=== PATIENT | female | born 1985 | race Hispanic/Latino ===

== ENCOUNTER 2019-06-06 20:29 | Emergency (ER) | payer OTHER | END 2019-06-06 21:07 | disposition home or self-care (01) | LOC: EDH 20:29 | DX: G43.909 Migraine, unspecified, not intractable, without status migrainosus (principal); E78.00 Pure hypercholesterolemia, unspecified; E11.9 Type 2 diabetes mellitus without complications; Z88.7 Allergy status to serum and vaccine | CPT/HCPCS: 99281 ==

== ENCOUNTER 2020-03-10 17:32 | Emergency (ER) | payer OTHER ==
[2020-03-10] MEDS ORDERED: KETOROLAC 30MG VIAL (30MG/ML) ONE (18:35)
[2020-03-10] MEDS ORDERED: ACETAMINOPHEN 325 MG TAB ONE (18:35)
[2020-03-10] MEDS ORDERED: PENICILLIN G BENZATHINE LA 1.2 MILUNITS/2 ML SYG ONE (18:36)
== END 2020-03-10 18:43 | disposition home or self-care (01) ==
LOC: EDH 17:32
DX: S02.5XXA Fracture of tooth (traumatic), initial encounter for closed fracture (principal); K02.9 Dental caries, unspecified; K04.7 Periapical abscess without sinus; G43.909 Migraine, unspecified, not intractable, without status migrainosus; E78.00 Pure hypercholesterolemia, unspecified; Z98.890 Other specified postprocedural states; Z88.7 Allergy status to serum and vaccine; X58.XXXA Exposure to other specified factors, initial encounter; Y93.89 Activity, other specified; Y92.89 Other specified places as the place of occurrence of the external cause; Y99.8 Other external cause status
CPT/HCPCS: 96372 ×2; 99284; J0561; J1885

== ENCOUNTER 2020-06-30 15:23 | Emergency (ER) | payer OTHER, MEDICARE ==
[2020-06-30] MEDS ORDERED: KETOROLAC TROMETHAMINE 30MG/ML ONE ×2 (15:49→16:08)
[2020-06-30] MEDS ORDERED: HYDROCODONE/ACETAMINOPHEN 10/325 MG TAB ONE (15:50)
[2020-06-30] MEDS ORDERED: DIAZEPAM 5 MG/ML 2 ML SYG ONE (15:51)
[2020-06-30] MEDS ORDERED: DIAZEPAM 5 MG TABLET ONE (16:08)
== END 2020-06-30 18:48 | disposition home or self-care (01) ==
LOC: EDH 15:23
DX: M54.41 Lumbago with sciatica, right side (principal); E78.00 Pure hypercholesterolemia, unspecified; G43.909 Migraine, unspecified, not intractable, without status migrainosus; Z87.891 Personal history of nicotine dependence; Z88.7 Allergy status to serum and vaccine
CPT/HCPCS: 72100; 96372; 99283; J1885 ×2; J3360

== ENCOUNTER 2022-09-18 13:16 | Emergency (ER) | payer OTHER, MEDICARE ==
[~2022-09-18] VITALS: Ht 154.9 cm; Wt 73.5 kg
[2022-09-18 13:55] LABS: BASOPHILS % (AUTO) 0.6 % (0.0-5.0); EOSINOPHILS % (AUTO) 0.8 % (0.0-8.0); HEMATOCRIT 35.8 % (36-48); LYMPHOCYTES % (AUTO) 38.6 % (21.0-51.0); MEAN CORPUSCULAR HEMOGLOBIN 27.7 pg (27.0-33.0); MEAN CORPUSCULAR HGB CONC 32.7 g/dL (32.0-36.0); MEAN CORPUSCULAR VOLUME 84.6 fL (79-99); MONOCYTES % (AUTO) 4.7 % (3.0-13.0); NEUTROPHILS % (AUTO) 55.1 % (40.0-77.0); PLATELET COUNT (AUTO) 323 K/uL (130-400); RED BLOOD CELL COUNT(AUTO) 4.23 MIL/uL (4.00-5.50); RED CELL DISTRIBUTION WIDTH 13.1 % (11.0-15.5); WHITE BLOOD COUNT (AUTO) 4.7 K/uL (4.8-10.8)
[2022-09-18 14:08] LABS: CREATININE 0.9 mg/dL (0.5-1.5); POTASSIUM 3.9 mmol/L (3.5-5.1)
[2022-09-18 14:11] LABS: ALBUMIN 3.4 g/dL (3.5-5.0); MAGNESIUM 1.9 mg/dL (1.80-2.40); TOTAL PROTEIN, SERUM 6.4 g/dL (6.0-8.3)
[2022-09-18] MEDS ORDERED: ASPIRIN 325MG TAB PO ONE (16:30)
[2022-09-18] MEDS ORDERED: MORPHINE 2 MG SYG IVP ONE (16:30)
[2022-09-18] MEDS ORDERED: FAMOTIDINE 20MG VIAL IV ONE (16:30)
[2022-09-18 18:42] VITALS: BP 131/64
== END 2022-09-18 18:50 | disposition home or self-care (01) ==
LOC: EDH 13:16
DX: R07.89 Other chest pain (principal); E78.00 Pure hypercholesterolemia, unspecified; M19.90 Unspecified osteoarthritis, unspecified site; M79.7 Fibromyalgia
CPT/HCPCS: 99285; 96374; 71045; 96375; 83735; 84484; 80053; 85025; 85378; 36415; 93005; J3490; J2270

== ENCOUNTER 2023-10-03 04:38 | Emergency (ER) | payer OTHER, MEDICARE ==
[~2023-10-03] VITALS: Ht 160 cm; Wt 65.8 kg
[~2023-10-03 04:38] MED LIST: ELEC62.5 PO; ONDA-243 PO
[2023-10-03 05:37] LABS: APPEARANCE,URINE CLOUDY (CLEAR); BILIRUBIN,URINE NEGATIVE (NEGATIVE); COLOR,URINE LIGHT-YELLOW (YELLOW); GLUCOSE, URINE (UA) NEGATIVE (NEGATIVE); KETONES,URINE 5 mg/dL (NEGATIVE); LEUKOCYTE ESTERASE ,URINE NEGATIVE Leu/uL (NEGATIVE); NITRATE,URINE NEGATIVE (NEGATIVE); PROTEIN,URINE NEGATIVE (NEGATIVE); UROBILINOGEN,URINE 0.2 mg/dL (0.2-1.0)
[2023-10-03 05:38] LABS: ADD UA MICROSCOPIC YES
[2023-10-03 05:42] LABS: MUCUS,URINE RARE LPF (None Seen); RBC,URINE 0-1 /HPF (0-1); SQUAMOUS EPITHELIAL CELL,UR MOD /HPF (0-2)
[2023-10-03 05:44] LABS: BASOPHILS # (AUTO) 0.03 K/uL (0.00-0.20); BASOPHILS % (AUTO) 0.4 % (0.0-5.0); EOSINOPHILS # (AUTO) 0.03 K/uL (0.00-0.70); EOSINOPHILS % (AUTO) 0.4 % (0.0-8.0); HEMATOCRIT 34.1 % (36-48); IMMATURE GRANULOCYTE ABSOLUTE 0.02 K/uL (0-1); LYMPHOCYTES # (AUTO) 3.4 K/uL (1.0-4.8); LYMPHOCYTES % (AUTO) 44.9 % (21.0-51.0); MEAN CORPUSCULAR HEMOGLOBIN 27.2 pg (27.0-33.0); MONOCYTES # (AUTO) 0.5 K/uL (0.1-1.0); MONOCYTES % (AUTO) 6.8 % (3.0-13.0); NEUTROPHILS # (AUTO) 3.6 K/uL (1.8-7.7); NEUTROPHILS % (AUTO) 47.2 % (40.0-77.0); PLATELET COUNT (AUTO) 459 K/uL (130-400); RED BLOOD CELL COUNT(AUTO) 4.26 MIL/uL (4.00-5.50); RED CELL DISTRIBUTION WIDTH 13.9 % (11.0-15.5); WHITE BLOOD COUNT (AUTO) 7.5 K/uL (4.8-10.8)
[2023-10-03 05:45] LABS: AMPHET/METH SCREEN,URINE NEGATIVE (NEGATIVE); BARBITURATE SCREEN, URINE NEGATIVE (NEGATIVE); BENZODIAZEPINES SCREEN,URINE NEGATIVE (NEGATIVE); CANNABINOID SCREEN,URINE POSITIVE (NEGATIVE); COCAINE SCREEN,URINE NEGATIVE (NEGATIVE); OPIATE SCREEN,URINE NEGATIVE (NEGATIVE); PHENCYCLIDINE SCREEN,URINE NEGATIVE (NEGATIVE)
[2023-10-03 05:49] LABS: CREATININE 0.8 mg/dL (0.5-1.0); POTASSIUM 3.5 mmol/L (3.5-5.1)
[2023-10-03 05:54] LABS: ALBUMIN 3.7 g/dL (3.5-5.0); BILIRUBIN,TOTAL 0.3 mg/dL (0.2-1.0); TOTAL PROTEIN, SERUM 6.9 g/dL (6.0-8.3)
[2023-10-03] MEDS: LACTATED RINGERS 1000ML IV SCH (06:00)
[2023-10-03] MEDS: ONDANSETRON 4MG INJ IVP ONE (06:10)
[2023-10-03] MEDS: LACTATED RINGERS 1000ML 1,000 ML IV ONE (06:10)
[2023-10-03 07:34] VITALS: BP 124/74; PULSE 80; RESP 18; O2SAT 98
== END 2023-10-03 07:50 | disposition home or self-care (01) ==
LOC: EDH 04:38
DX: F41.1 Generalized anxiety disorder (principal); F43.0 Acute stress reaction; E86.0 Dehydration; E78.00 Pure hypercholesterolemia, unspecified; I10 Essential (primary) hypertension; M79.7 Fibromyalgia; M19.90 Unspecified osteoarthritis, unspecified site; F12.10 Cannabis abuse, uncomplicated; Z79.899 Other long term (current) drug therapy; Z88.8 Allergy status to other drugs, medicaments and biological substances; Z98.890 Other specified postprocedural states
CPT/HCPCS: 99285; 96374; 71045; 84484; 80053; 80305; 85025; 81001; 36415; 93005; J7120; J2405

== ENCOUNTER 2023-11-15 10:42 | Emergency (ER) | payer OTHER, MEDICARE ==
[~2023-11-15] VITALS: Ht 160 cm; Wt 63.5 kg
[2023-11-15 10:55] VITALS: TEMP 98.8
[2023-11-15 11:19] VITALS: BP 132/71; PULSE 63; RESP 18; O2SAT 100
[2023-11-15] MEDS: morPHINE 4 MG SYG IVP ONE (11:28)
[2023-11-15] MEDS: 0.9%NACL 1000ML 1,000 ML IV ONE (11:28)
[2023-11-15] MEDS: ONDANSETRON 4MG INJ IVP ONE (11:29)
[2023-11-15 11:34] LABS: APPEARANCE,URINE CLEAR (CLEAR); BILIRUBIN,URINE NEGATIVE (NEGATIVE); COLOR,URINE COLORLESS (YELLOW); GLUCOSE, URINE (UA) NEGATIVE (NEGATIVE); KETONES,URINE 20 mg/dL (NEGATIVE); LEUKOCYTE ESTERASE ,URINE NEGATIVE Leu/uL (NEGATIVE); NITRATE,URINE NEGATIVE (NEGATIVE); OCCULT BLOOD,URINE NEGATIVE (NEGATIVE); PROTEIN,URINE NEGATIVE (NEGATIVE); UROBILINOGEN,URINE 0.2 mg/dL (0.2-1.0)
[2023-11-15] MEDS: acetaMINOPHEN 500 MG TABLET PO ONE (11:38)
[2023-11-15 11:45] LABS: ADD UA MICROSCOPIC YES
[2023-11-15 11:46] LABS: BASOPHILS # (AUTO) 0.03 K/uL (0.00-0.20); BASOPHILS % (AUTO) 0.4 % (0.0-5.0); EOSINOPHILS # (AUTO) 0.02 K/uL (0.00-0.70); EOSINOPHILS % (AUTO) 0.2 % (0.0-8.0); HEMATOCRIT 36.5 % (36-48); IMMATURE GRANULOCYTE ABSOLUTE 0.03 K/uL (0-1); LYMPHOCYTES # (AUTO) 1.7 K/uL (1.0-4.8); LYMPHOCYTES % (AUTO) 21.2 % (21.0-51.0); MEAN CORPUSCULAR HEMOGLOBIN 27.3 pg (27.0-33.0); MEAN CORPUSCULAR HGB CONC 33.2 g/dL (32.0-36.0); MEAN CORPUSCULAR VOLUME 82.2 fL (79-99); MONOCYTES # (AUTO) 0.5 K/uL (0.1-1.0); MONOCYTES % (AUTO) 6.1 % (3.0-13.0); NEUTROPHILS # (AUTO) 5.9 K/uL (1.8-7.7); NEUTROPHILS % (AUTO) 71.7 % (40.0-77.0); PLATELET COUNT (AUTO) 472 K/uL (130-400); RED BLOOD CELL COUNT(AUTO) 4.44 MIL/uL (4.00-5.50); RED CELL DISTRIBUTION WIDTH 13.6 % (11.0-15.5); WHITE BLOOD COUNT (AUTO) 8.2 K/uL (4.8-10.8)
[2023-11-15 11:48] LABS: BACTERIA,URINE RARE /HPF (None Seen); RBC,URINE 0-1 /HPF (0-1); SQUAMOUS EPITHELIAL CELL,UR RARE /HPF (0-2); WBC,URINE 0-1 /HPF (0-1)
[2023-11-15 12:04] LABS: CREATININE 0.8 mg/dL (0.5-1.0); POTASSIUM 3.1 mmol/L (3.5-5.1)
[2023-11-15 12:09] LABS: ALBUMIN 4.1 g/dL (3.5-5.0); BILIRUBIN,TOTAL 0.5 mg/dL (0.2-1.0); TOTAL PROTEIN, SERUM 7.3 g/dL (6.0-8.3)
[2023-11-15] MEDS: POTASSIUM BICARB/CIT AC 25 MEQ TABLET.EFF PO ONE (12:20)
[2023-11-15] MEDS: HYDROcodone/APAP 5/325 1 TAB TABLET PO ONE (12:40)
[2023-11-15] MEDS ORDERED: IBUP-2077 PO (12:40)
[2023-11-15] MEDS ORDERED: FAMC500T8 PO (12:40)
[2023-11-15] MEDS ORDERED: HYDR100C2 PO (12:40)
== END 2023-11-15 13:06 | disposition home or self-care (01) ==
LOC: EDH 10:42
DX: B00.1 Herpesviral vesicular dermatitis (principal); R10.2 Pelvic and perineal pain; G57.00 Lesion of sciatic nerve, unspecified lower limb; E87.6 Hypokalemia; I10 Essential (primary) hypertension; E78.00 Pure hypercholesterolemia, unspecified; F41.9 Anxiety disorder, unspecified; G47.00 Insomnia, unspecified; M19.90 Unspecified osteoarthritis, unspecified site; M79.7 Fibromyalgia; Z79.899 Other long term (current) drug therapy; Z98.890 Other specified postprocedural states; Z88.8 Allergy status to other drugs, medicaments and biological substances
CPT/HCPCS: 36415; 76856; 80053; 81001; 84703; 85025